=== PATIENT | female | born 1985 | race American Indian/Alaskan Native ===

== ENCOUNTER 2016-05-22 16:58 | Emergency (ER) | payer SELFPAY ==
[2016-05-22 17:33] VITALS: BP 120/87
--- NOTE | 2016-05-22 17:33 | Emergency Department Report ---
Chief Complaint: Vaginal Bleeding Stated Complaint: POSS MISCARRIAGE Time Seen by Provider: 05/22/16 17:29 - HPI History of Present Illness: pt states she had an in [place] on 03-21-16. PT states she never followed up. PT states she has had vaginal spotting since. PT states today she was at work and she started having heavy bleeding. PT states when she realized she was passing clots, she decided to come to ED - ROS Review of Systems: - n/v + vaginal bleeding - Exam Physical Exam: pt looks well, non toxic. no acute distress gcs 15 exam not done in triage MSE screening note: Focused history and physical exam performed. Due to findings the following was ordered: labs, us ED Disposition for MSE Condition: Stable
[2016-05-22 18:25] LABS: Basophils % (Auto) 0.8 % (0.0-1.8); Eosinophils % (Auto) 1.2 % (0.0-4.3); Hematocrit 37.1 % (30.3-42.9); Hemoglobin 12.3 gm/dl (10.1-14.3); Mean Corpuscular HGB Conc 33 % (30-34); Mean Corpuscular Hemoglobin 32 pg (28-32); Mean Corpuscular Volume 98 fl (79-97); Platelet Count 246 K/mm3 (140-440); Red Cell Distribution Width 12.5 % (13.2-15.2); White Blood Count 5.2 K/mm3 (4.5-11.0)
[2016-05-22 18:33] LABS: INR 0.97 (0.87-1.13)
[2016-05-22 18:39] LABS: Alanine Aminotransferase 8 units/L (7-56); Albumin 3.9 g/dL (3.9-5); Albumin/Globulin Ratio 1.1 %; Alkaline Phosphatase 68 units/L (35-129); Anion Gap 16 mmol/L; Bilirubin,Total 0.3 mg/dL (0.1-1.2); Blood Urea Nitrogen 9 mg/dL (7-17); Calcium 8.7 mg/dL (8.4-10.2); Carbon Dioxide 27 mmol/L (22-30); Chloride 103.2 mmol/L (98-107); Glucose 81 mg/dL (65-100); Potassium 3.8 mmol/L (3.6-5.0); Sodium 142 mmol/L (137-145); Total Protein 7.3 g/dL (6.3-8.2)
--- NOTE | 2016-05-22 20:10 | Ultrasound Report ---
FINAL REPORT PROCEDURE: US OB \T\lt; = 14 WEEKS FETUS TECHNIQUE: Real-time transabdominal and transvaginal sonography of the uterus, placenta, amniotic fluid, adnexa, and fetus was performed with image documentation. Measurements were obtained to determine age/size. M-mode Doppler was used to document heartbeat. CPT 04567 and 34223 HISTORY: bleeding, COMPARISON: No prior studies are available for comparison. FINDINGS: No IUP is seen. Uterus measures 9.6 cm in length. Endometrial thickness is 2.5 cm with possible retained products of conception. Right ovary measures 4.4 x 2.8 x 3.0 cm and contains a 1.3 cm complex cyst. Left ovary measures 4.5 x 2.5 x 2.5 cm. Minimal free pelvic fluid is likely physiologic. No evidence of ectopic is seen. IMPRESSION: Thickened endometrium with heterogeneity is suggestive of retained products of conception.
--- NOTE | 2016-05-22 20:12 | Ultrasound Report ---
FINAL REPORT PROCEDURE: US OB TRANSVAGINAL TECHNIQUE: Real-time transabdominal and transvaginal sonography of the uterus, placenta, amniotic fluid, adnexa, and fetus was performed with image documentation. Measurements were obtained to determine age/size. M-mode Doppler was used to document heartbeat. CPT 49955 and 29303 HISTORY: bleeding, COMPARISON: No prior studies are available for comparison. FINDINGS: No IUP is seen. Uterus measures 9.6 cm in length. Endometrial thickness is 2.5 cm with possible retained products of conception. Right ovary measures 4.4 x 2.8 x 3.0 cm and contains a 1.3 cm complex cyst. Left ovary measures 4.5 x 2.5 x 2.5 cm. Minimal free pelvic fluid is likely physiologic. No evidence of ectopic is seen. IMPRESSION: Thickened endometrium with heterogeneity is suggestive of retained products of conception.
--- NOTE | 2016-05-23 15:02 | ED Elopement Review ---
ED Pt Elopement review - Results review Lab results: Laboratory Tests 05/22/16 05/22/16 05/22/16 18:05 18:05 18:05 WBC 5.2 RBC 3.80 Hgb 12.3 Hct 37.1 MCV 98 H MCH 32 MCHC 33 RDW 12.5 L Plt Count 246 Lymph % (Auto) 29.8 [place] % (Auto) 7.3 Eos % (Auto) 1.2 Baso % (Auto) 0.8 Lymph # 1.6 [place]ades # 0.4 Eos # 0.1 Baso # 0.0 Seg Neutrophils % 60.9 Seg Neutrophils # 3.2 PT 12.8 INR 0.97 Sodium 142 Potassium 3.8 Chloride 103.2 Carbon Dioxide 27 Anion Gap 16 BUN 9 Creatinine 0.6 L Estimated GFR > 60 BUN/Creatinine Ratio 15.00 Glucose 81 Calcium 8.7 Total Bilirubin 0.3 AST 12 ALT 8 Alkaline Phosphatase 68 Total Protein 7.3 Albumin 3.9 Albumin/Globulin Ratio 1.1 HCG, Quant Blood Type 05/22/16 05/22/16 18:05 18:05 WBC RBC Hgb Hct MCV MCH MCHC RDW Plt Count Lymph % (Auto) [place]ades % (Auto) Eos % (Auto) Baso % (Auto) Lymph # [place] # Eos # Baso # Seg Neutrophils % Seg Neutrophils # PT INR Sodium Potassium Chloride Carbon Dioxide Anion Gap BUN Creatinine Estimated GFR BUN/Creatinine Ratio Glucose Calcium Total Bilirubin AST ALT Alkaline Phosphatase Total Protein Albumin Albumin/Globulin Ratio HCG, Quant 7.88 H Blood Type B POSITIVE - Call Back decision Pt Call Back Decision: Call pt to return to ED SHEY (retained products of conception on ultrasound)
== END 2016-05-22 21:45 | disposition left against medical advice (07) ==
LOC: ED 16:58
DX: N93.9 Abnormal uterine and vaginal bleeding, unspecified (principal); Z53.21 Procedure and treatment not carried out due to patient leaving prior to being seen by health care provider
CPT/HCPCS: 36415; 76801; 76817; 80053; 84702; 85025; 85610; 86900; 86901